=== PATIENT | male | born 1980 | race Two or more races ===

== ENCOUNTER 2018-05-29 21:01 | Inpatient (IN) | payer OTHER ==
[2018-05-29] MEDS ORDERED: DOCUSATE SODIUM 100 MG CAP PO (22:30)
[2018-05-29] MEDS ORDERED: NACL 0.9% 3 ML SYG IV (22:30)
[2018-05-29] MEDS ORDERED: ACETAMINOPHEN 325 MG TAB PO (22:30)
[2018-05-29] MEDS ORDERED: LORAZEPAM 4 MG/ML VIAL IV (22:30)
[2018-05-29] MEDS ORDERED: BISACODYL (EC) 5 MG TAB PO (22:30)
[2018-05-29] MEDS ORDERED: ONDANSETRON 4 MG INJ IV (22:30)
[2018-05-29 23:19] LABS: ADD MAN DIFF? NO
[2018-05-29 23:23] LABS: WHITE BLOOD COUNT 5.1 10^3/ul (4.8-10.8)
[2018-05-29 23:23] LABS: EOSINOPHILS % 0.6 % (0.0-7.0); HEMATOCRIT 38.3 % (42.0-52.0); HEMOGLOBIN 12.6 g/dl (14.0-18.0); LYMPHOCYTES # 2.2 10^3/ul (0.8-2.9); LYMPHOCYTES % 43.6 % (15.0-51.0); MEAN CORPUSCULAR HEMOGLOBIN 31.2 pg (29.0-33.0); MEAN CORPUSCULAR HGB CONC 32.9 g/dl (32.0-37.0); MEAN CORPUSCULAR VOLUME 94.8 fl (82.0-101.0); MEAN PLATELET VOLUME 11.3 fl (7.4-10.4); MONOCYTE # 0.4 10^3/ul (0.3-0.9); MONOCYTES % 7.4 % (0.0-11.0); NEUTROPHIL # 2.5 10^3/ul (1.6-7.5); NEUTROPHILS % 48.2 % (39.0-77.0); PLATELET COUNT 158 10^3/UL (140-415); RED BLOOD COUNT 4.04 10^6/ul (4.70-6.10); RED CELL DISTRIBUTION WIDTH 12.9 % (11.5-14.5)
[2018-05-29 23:36] LABS: ANION GAP 6 (5-13); BLOOD UREA NITROGEN 7 mg/dl (7-20); CALCIUM 8.7 mg/dl (8.4-10.2); CARBON DIOXIDE 33 mmol/L (21-31); CHLORIDE 103 mmol/L (97-110); Estimated GFR > 60 mL/min (>60); GLUCOSE 116 mg/dl (70-220); POTASSIUM 3.2 mmol/L (3.5-5.1); SODIUM 142 mmol/L (135-144)
[2018-05-30] MEDS: LEVETIRACETAM 500 MG (PMX) 100 ML IVPB ×2 (00:19→09:39)
[2018-05-30] MEDS: POTASSIUM CHLORIDE (SR) 20 MEQ TAB PO (00:48)
[2018-05-30] MEDS ORDERED: LEVETIRACETAM 500 MG (PMX) 100 ML IVPB (06:00)
[2018-05-30 07:05] LABS: ADD MAN DIFF? NO
[2018-05-30 07:14] LABS: BASOPHILS % 0.2 % (0.0-2.0); EOSINOPHILS % 0.4 % (0.0-7.0); HEMATOCRIT 36.1 % (42.0-52.0); HEMOGLOBIN 11.9 g/dl (14.0-18.0); LYMPHOCYTES # 2.4 10^3/ul (0.8-2.9); LYMPHOCYTES % 52.1 % (15.0-51.0); MEAN PLATELET VOLUME 11.2 fl (7.4-10.4); MONOCYTE # 0.4 10^3/ul (0.3-0.9); MONOCYTES % 8.1 % (0.0-11.0); NEUTROPHIL # 1.8 10^3/ul (1.6-7.5); PLATELET COUNT 141 10^3/UL (140-415); RED BLOOD COUNT 3.84 10^6/ul (4.70-6.10); RED CELL DISTRIBUTION WIDTH 13.1 % (11.5-14.5)
[2018-05-30 07:14] LABS: WHITE BLOOD COUNT 4.6 10^3/ul (4.8-10.8)
[2018-05-30 07:22] LABS: HEMOGLOBIN A1C 5.4 % (0-5.9)
[2018-05-30 07:55] LABS: ALANINE AMINOTRANSFERASE 30 IU/L (13-69); ALBUMIN 3.1 g/dl (3.3-4.9); ALBUMIN/GLOBULIN RATIO 1.19; ALKALINE PHOSPHATASE 52 IU/L (42-121); ANION GAP 9 (5-13); ASPARTATE AMINO TRANSFERASE 23 IU/L (15-46); BLOOD UREA NITROGEN 8 mg/dl (7-20); CALCIUM 8.7 mg/dl (8.4-10.2); CARBON DIOXIDE 31 mmol/L (21-31); CHLORIDE 104 mmol/L (97-110); CREATININE 0.88 mg/dl (0.61-1.24); Estimated GFR > 60 mL/min (>60); GLUCOSE 103 mg/dl (70-220); POTASSIUM 3.7 mmol/L (3.5-5.1); SODIUM 144 mmol/L (135-144); TOTAL PROTEIN 5.7 g/dl (6.1-8.1)
[2018-05-30 07:57] LABS: VALPROATE < 10 ug/ml (50-100)
[2018-05-30 07:58] LABS: DIGOXIN < 0.4 ng/ml (1.0-2.0)
[2018-05-30 08:15] LABS: THYROID STIMULATING HORMONE 0.823 MIU/L (0.465-4.680)
[2018-05-30] MEDS: HYDROCHLOROTHIAZIDE 25 MG TAB PO (10:30)
[2018-05-30 11:58] LABS: AMPHETAMINE/METHAMPHETAMINE Negative (NEGATIVE); BARBITURATES Negative (NEGATIVE); BENZODIAZEPINES Negative (NEGATIVE); CANNABINOIDS Negative (NEGATIVE); COCAINE Positive (NEGATIVE); OPIATES Negative (NEGATIVE)
[2018-05-30 12:23] LABS: PHENYTOIN (DILANTIN) < 3.0 ug/ml (10.0-20.0)
[2018-05-30] MEDS: VALPROATE INJ 1,500 MG in SOD CHLORIDE 0.9% 100 ML IVPB (13:28)
[2018-05-30] MEDS: DIVALPROEX (EC) 500 MG TAB PO (20:15)
[2018-05-30] MEDS: DOCUSATE SODIUM 100 MG CAP PO (23:24)
[2018-05-31 06:19] LABS: ADD MAN DIFF? NO
[2018-05-31 06:21] LABS: EOSINOPHILS % 0.5 % (0.0-7.0); HEMOGLOBIN 12.4 g/dl (14.0-18.0); LYMPHOCYTES % 49.1 % (15.0-51.0); MEAN CORPUSCULAR HEMOGLOBIN 31.6 pg (29.0-33.0); MEAN CORPUSCULAR HGB CONC 33.5 g/dl (32.0-37.0); MEAN CORPUSCULAR VOLUME 94.4 fl (82.0-101.0); MEAN PLATELET VOLUME 10.8 fl (7.4-10.4); MONOCYTE # 0.3 10^3/ul (0.3-0.9); MONOCYTES % 8.1 % (0.0-11.0); NEUTROPHIL # 1.7 10^3/ul (1.6-7.5); NEUTROPHILS % 42.1 % (39.0-77.0); PLATELET COUNT 149 10^3/UL (140-415); RED BLOOD COUNT 3.92 10^6/ul (4.70-6.10); RED CELL DISTRIBUTION WIDTH 12.8 % (11.5-14.5)
[2018-05-31 06:21] LABS: WHITE BLOOD COUNT 4.1 10^3/ul (4.8-10.8)
[2018-05-31 06:51] LABS: ANION GAP 9 (5-13); BLOOD UREA NITROGEN 9 mg/dl (7-20); CALCIUM 8.5 mg/dl (8.4-10.2); CARBON DIOXIDE 30 mmol/L (21-31); CHLORIDE 103 mmol/L (97-110); CREATININE 0.84 mg/dl (0.61-1.24); Estimated GFR > 60 mL/min (>60); GLUCOSE 123 mg/dl (70-220); MAGNESIUM 1.8 mg/dl (1.7-2.5); POTASSIUM 3.5 mmol/L (3.5-5.1); SODIUM 142 mmol/L (135-144)
[2018-05-31 06:54] LABS: VALPROATE 44 ug/ml (50-100)
[2018-05-31] MEDS: HYDROCHLOROTHIAZIDE 25 MG TAB PO (10:20)
[2018-05-31] MEDS: DIVALPROEX (EC) 500 MG TAB PO ×3 (10:20→20:32)
[2018-05-31] MEDS: LISINOPRIL 20 MG TAB PO (13:30)
[2018-05-31] MEDS: DOCUSATE SODIUM 100 MG CAP PO ×2 (13:30→22:02)
[2018-05-31] MEDS: VALPROATE INJ 750 MG in SOD CHLORIDE 0.9% 50 ML IVPB (16:30)
[2018-06-01] MEDS: LISINOPRIL 20 MG TAB PO (09:16)
[2018-06-01] MEDS: DOCUSATE SODIUM 100 MG CAP PO (09:16)
[2018-06-01] MEDS: HYDROCHLOROTHIAZIDE 25 MG TAB PO (11:04)
[2018-06-01] MEDS: DIVALPROEX (EC) 500 MG TAB PO ×2 (11:04→13:39)
[2018-06-01 12:25] LABS: VALPROATE 56 ug/ml (50-100)
== END 2018-06-01 15:00 | disposition home health service (06) | DRG 897 ==
LOC: 5EC 06-01 00:54 → TEL 21:01
PROC: 3E0234Z Introduction of Serum, Toxoid and Vaccine into Muscle, Percutaneous Approach (ICD-10-PCS; principal; 2018-05-30)
DX: F14.188 Cocaine abuse with other cocaine-induced disorder (principal); G40.909 Epilepsy, unspecified, not intractable, without status epilepticus; I10 Essential (primary) hypertension; F31.9 Bipolar disorder, unspecified; F20.9 Schizophrenia, unspecified; Z59.0 Homelessness; F17.200 Nicotine dependence, unspecified, uncomplicated; Z91.14 Patient's other noncompliance with medication regimen; Z23 Encounter for immunization
CPT/HCPCS: 80048; 80053; 80162; 80164; 80185; 80307; 83036; 83735; 84443; 85025; 90686; 97161

== ENCOUNTER 2018-09-05 15:29 | Inpatient (IN) | payer OTHER ==
[2018-09-05] MEDS ORDERED: NACL 0.9% 3 ML SYG IV (17:00)
[2018-09-05] MEDS ORDERED: ONDANSETRON 4 MG INJ IV (17:00)
[2018-09-05] MEDS ORDERED: ACETAMINOPHEN 325 MG TAB PO (17:00)
[2018-09-05] MEDS: LEVETIRACETAM 500 MG TAB PO (21:20)
[2018-09-05] MEDS: DIVALPROEX (EC) 500 MG TAB PO (21:20)
[2018-09-05 23:53] LABS: ADD MAN DIFF? NO
[2018-09-05 23:54] LABS: WHITE BLOOD COUNT 5.9 10^3/ul (4.8-10.8)
[2018-09-05 23:54] LABS: BASOPHILS % 0.3 % (0.0-2.0); EOSINOPHILS % 0.5 % (0.0-7.0); LYMPHOCYTES # 2.1 10^3/ul (0.8-2.9); MEAN CORPUSCULAR HGB CONC 32.4 g/dl (32.0-37.0); MEAN CORPUSCULAR VOLUME 95.6 fl (82.0-101.0); MEAN PLATELET VOLUME 10.6 fl (7.4-10.4); MONOCYTE # 0.6 10^3/ul (0.3-0.9); MONOCYTES % 9.5 % (0.0-11.0); NEUTROPHIL # 3.2 10^3/ul (1.6-7.5); NEUTROPHILS % 54.4 % (39.0-77.0); PLATELET COUNT 160 10^3/UL (140-415); RED BLOOD COUNT 3.87 10^6/ul (4.70-6.10); RED CELL DISTRIBUTION WIDTH 13.8 % (11.5-14.5)
[2018-09-06 00:18] LABS: ALANINE AMINOTRANSFERASE 26 IU/L (13-69); ALBUMIN 3.5 g/dl (3.3-4.9); ALBUMIN/GLOBULIN RATIO 1.25; ALKALINE PHOSPHATASE 60 IU/L (42-121); ANION GAP 8 (5-13); ASPARTATE AMINO TRANSFERASE 40 IU/L (15-46); BILIRUBIN,INDIRECT 0.3 mg/dl (0-1.1); BILIRUBIN,TOTAL 0.3 mg/dl (0.2-1.3); BLOOD UREA NITROGEN 11 mg/dl (7-20); CALCIUM 8.5 mg/dl (8.4-10.2); CARBON DIOXIDE 32 mmol/L (21-31); CHLORIDE 100 mmol/L (97-110); CREATINE KINASE 1303 IU/L (23-200); CREATININE 0.87 mg/dl (0.61-1.24); Estimated GFR > 60 mL/min (>60); GLUCOSE 110 mg/dl (70-220); POTASSIUM 3.4 mmol/L (3.5-5.1); SODIUM 140 mmol/L (135-144); TOTAL PROTEIN 6.3 g/dl (6.1-8.1)
[2018-09-06] MEDS: SOD CHLORIDE 0.9% 1,000 ML IV ×3 (01:23→20:23)
[2018-09-06 05:32] LABS: ADD MAN DIFF? NO
[2018-09-06 05:38] LABS: BASOPHILS % 0.2 % (0.0-2.0); EOSINOPHILS % 0.4 % (0.0-7.0); HEMATOCRIT 36.8 % (42.0-52.0); HEMOGLOBIN 11.9 g/dl (14.0-18.0); LYMPHOCYTES # 1.9 10^3/ul (0.8-2.9); MEAN CORPUSCULAR HEMOGLOBIN 30.8 pg (29.0-33.0); MEAN CORPUSCULAR HGB CONC 32.3 g/dl (32.0-37.0); MEAN CORPUSCULAR VOLUME 95.3 fl (82.0-101.0); MEAN PLATELET VOLUME 11.2 fl (7.4-10.4); MONOCYTE # 0.4 10^3/ul (0.3-0.9); MONOCYTES % 8.5 % (0.0-11.0); NEUTROPHIL # 2.9 10^3/ul (1.6-7.5); NEUTROPHILS % 54.7 % (39.0-77.0); PLATELET COUNT 165 10^3/UL (140-415); RED BLOOD COUNT 3.86 10^6/ul (4.70-6.10); RED CELL DISTRIBUTION WIDTH 13.8 % (11.5-14.5)
[2018-09-06 05:38] LABS: WHITE BLOOD COUNT 5.2 10^3/ul (4.8-10.8)
[2018-09-06 06:18] LABS: CREATINE KINASE 1171 IU/L (23-200)
[2018-09-06 06:32] LABS: ALANINE AMINOTRANSFERASE 28 IU/L (13-69); ALBUMIN 3.2 g/dl (3.3-4.9); ALBUMIN/GLOBULIN RATIO 1.18; ALKALINE PHOSPHATASE 66 IU/L (42-121); ANION GAP 7 (5-13); ASPARTATE AMINO TRANSFERASE 36 IU/L (15-46); BILIRUBIN,INDIRECT 0.3 mg/dl (0-1.1); BILIRUBIN,TOTAL 0.3 mg/dl (0.2-1.3); BLOOD UREA NITROGEN 10 mg/dl (7-20); CALCIUM 8.6 mg/dl (8.4-10.2); CARBON DIOXIDE 31 mmol/L (21-31); CHLORIDE 103 mmol/L (97-110); CREATININE 0.77 mg/dl (0.61-1.24); Estimated GFR > 60 mL/min (>60); GLUCOSE 97 mg/dl (70-220); PHOSPHORUS 2.9 mg/dl (2.5-4.9); POTASSIUM 3.7 mmol/L (3.5-5.1); SODIUM 141 mmol/L (135-144); TOTAL PROTEIN 5.9 g/dl (6.1-8.1)
[2018-09-06 06:52] LABS: HEMOGLOBIN A1C 5.3 % (0-5.9)
[2018-09-06 07:00] LABS: THYROID STIMULATING HORMONE 0.396 MIU/L (0.465-4.680)
[2018-09-06] MEDS: LISINOPRIL 20 MG TAB PO (09:44)
[2018-09-06] MEDS: LEVETIRACETAM 500 MG TAB PO ×2 (09:44→20:22)
[2018-09-06] MEDS: DIVALPROEX (EC) 500 MG TAB PO ×2 (09:44→13:00)
[2018-09-06] MEDS: HYDROCHLOROTHIAZIDE 25 MG TAB PO (09:44)
[2018-09-06] MEDS: QUETIAPINE 100 MG TAB PO (20:22)
[2018-09-06] MEDS ORDERED: DIVALPROEX (EC) 500 MG TAB PO (21:00)
[2018-09-07] MEDS: SOD CHLORIDE 0.9% 1,000 ML IV ×4 (02:52→22:05)
[2018-09-07] MEDS ORDERED: hydrALAzine 20 MG INJ IV (04:30)
[2018-09-07 07:49] LABS: ANION GAP 8 (5-13); BLOOD UREA NITROGEN 13 mg/dl (7-20); CALCIUM 8.8 mg/dl (8.4-10.2); CARBON DIOXIDE 28 mmol/L (21-31); CHLORIDE 106 mmol/L (97-110); CREATININE 0.79 mg/dl (0.61-1.24); Estimated GFR > 60 mL/min (>60); GLUCOSE 92 mg/dl (70-220); POTASSIUM 4.1 mmol/L (3.5-5.1); SODIUM 142 mmol/L (135-144)
[2018-09-07] MEDS: LEVETIRACETAM 500 MG TAB PO ×2 (12:39→20:43)
[2018-09-07] MEDS: QUETIAPINE 100 MG TAB PO (20:43)
[2018-09-08] MEDS: LEVETIRACETAM 500 MG TAB PO (08:28)
== END 2018-09-08 09:00 | disposition home or self-care (01) | DRG 92 ==
LOC: 5EC 15:29
DX: G92 Toxic encephalopathy (principal); M62.82 Rhabdomyolysis; G40.909 Epilepsy, unspecified, not intractable, without status epilepticus; T40.5X5A Adverse effect of cocaine, initial encounter; T43.625A Adverse effect of amphetamines, initial encounter
CPT/HCPCS: 80048; 80053; 82550; 83036; 83735; 84100; 84443; 85025